=== PATIENT | female | born 1975 | race African-American/Black ===

== ENCOUNTER 2021-09-13 14:21 | Emergency (ER) | payer MEDICARE | END 2021-09-13 19:35 | disposition left against medical advice (07) | LOC: ER 14:21 | DX: Z53.21 Procedure and treatment not carried out due to patient leaving prior to being seen by health care provider (principal) ==

== ENCOUNTER 2021-09-13 23:25 | Emergency (ER) | payer MEDICARE ==
[~2021-09-13] VITALS: Ht 167.6 cm; Wt 60.0 kg
[2021-09-14 03:41] VITALS: BP 137/72
--- NOTE | 2021-09-14 04:01 | PHYS DOC ---
Past Medical History Past Surgical History: No Surgical History General Adult EDM: Chief Complaint: COUGH HPI: HPI: Patient is a 45 year old female who is here with a few day history of sore throat, mild nasal congestion, dry cough. She denies fevers or chills. She d enies headache. She denies chest pain, dyspnea, wheezing, denies abdominal pain, nausea, vomiting, diarrhea. She denies urinary symptoms. She denies any known sick contacts or travel history. She denies any severe headache pain. Denies neck pain or stiffness. Denies photophobia, denies numbness or tingling or motor weakness. Review of Systems: Review of Systems: Constitutional: Subjective chills, no documented fever Eyes: Denies change in visual acuity. [] HENT: Sore throat, nasal congestion Respiratory: Dry cough, no dyspnea or wheezing, no hemoptysis Cardiovascular: Denies chest pain or edema. [] GI: Denies abdominal pain, nausea, vomiting, or diarrhea : Denies urinary symptoms Musculoskeletal: Denies back pain or joint pain. [] Integument: Denies rash. [] Neurologic: Mild headache, no severe headache, denies numbness, tingling, focal motor weakness, denies dizziness Psychiatric: Denies depression or anxiety. [] Heart Score: C/O Chest Pain: No Risk Factors: Risk Factors: DM, Current or recent (<one month) smoker, HTN, HLP, family history of CAD, obesity. Risk Scores: Score 0 - 3: 2.5% MACE over next 6 weeks - Discharge Home Score 4 - 6: 20.3% MACE over next 6 weeks - Admit for Clinical Observation Score 7 - 10: 72.7% MACE over next 6 weeks - Early Invasive Strategies Allergies: Allergies: Allergies Coded Allergies Type Severity Reaction Last Updated Verified No Known Drug Allergies 09/14/21 No Physical Exam: PE: Constitutional: Well developed, well nourished, no acute distress, non-toxic appearance. [] HENT: Normocephalic, atraumatic, oropharynx is patent and clear without exudate or erythema, mucous membranes are moist. TMs are clear bilaterally. Nares are patent without rhinorrhea. Eyes: Conjunctiva normal, no discharge. [] Neck: Normal range of motion, no tenderness, supple, no stridor. Trachea midline, no JVD, no meningismus Cardiovascular:Heart rate regular rhythm, cap refill is brisk, no peripheral edema, warm and Lungs & Thorax: Bilateral breath sounds clear to auscultation, no rales, rhonchi or wheezes Skin: Warm, dry, no erythema, no rash. [] Back: No tenderness, no CVA tenderness. [] Extremities: No tenderness, no cyanosis, no clubbing, ROM intact, no edema. No calf tenderness Neurologic: Alert and oriented X 3, normal motor function, normal sensory function, no focal deficits noted. [] Psychologic: Affect is flat. She is cooperative [] Current Patient Data: Vital Signs: Vital Signs Date Time Temp Pulse Resp B/P (MAP) Pulse Ox O2 Delivery O2 Flow Rate FiO2 09/14/21 03:41 98.5 99 16 137/72 (93) 97 98.5 EKG: EKG: [] Radiology/Procedures: Radiology/Procedures: [] Course & Med Decision Making: Course & Med Decision Making Pertinent Labs and Imaging studies reviewed. (See chart for details) I discussed the findings, differential diagnosis and plan of care with the patient. She is well-appearing. Emergency department work-up is unremarkable for any acute life-threatening illness. No indication for further invasive exams, imaging or labs at this time. Return precautions are given. Home care instructions are given. She verbalizes understanding. Alex Disclaimer: Alex Disclaimer: This electronic medical record was generated, in whole or in part, using a voice recognition dictation system. Departure Departure Impression: Primary Impression: Upper respiratory infection Disposition: HOME / SELF CARE / HOMELESS Condition: STABLE Referrals: NO PCP (PCP) Patient Instructions: Upper Respiratory Infection, Adult Additional Instructions: You may take [id number] Tylenol and/or ibuprofen for pain or fever. You may take an [id number] decongestant or antihistamine such as Claritin. Return to the ER for chest pain, shortness of breath, uncontrolled vomiting, difficulty swallowing, inability to control secretions or for any other concerns. Make sure you stay well-hydrated, eat a bland diet, drink clear fluids. Please follow-up with your primary care physician BEAU HERRON DO Sep 14, 2021 04:01
[2021-09-14 05:16] LABS: INFLUENZA A PATIENT NEGATIVE (NEGATIVE); INFLUENZA B PATIENT NEGATIVE (NEGATIVE)
== END 2021-09-14 06:40 | disposition home or self-care (01) ==
LOC: ER 23:25
DX: J06.9 Acute upper respiratory infection, unspecified (principal); Z20.822 Contact with and (suspected) exposure to COVID-19
CPT/HCPCS: 87070; 87426; 87804; 87880; 99282